=== PATIENT | male | born 1950 ===

== ENCOUNTER 2018-07-24 09:23 | Inpatient (IN) | payer OTHER ==
[~2018-07-24] VITALS: Ht 165.1 cm; Wt 81.6 kg
--- NOTE | 2018-07-24 09:35 | NUR ---
PACIENTE AL MOMENTO ESTABLE, ALERTA Y ORIENTADO X3 REFIERE DOLOR EN FLANKO LT, CORRIE LLEGA CON UN REFERIDO MEDICO EL CUAL INDICA QUE PACIENTE TIENE DX DE COLELITIASIS. SE CONTINUA MONITOREANDO POR CAMBIOS. AL MOMENTO PACIENTE ESTABLE DENTRO DE FERNANDEZ CONDICION.
--- NOTE | 2018-07-24 15:47 | NUR ---
PT ALERTA Y ORINETADO X3 ESFERAS REEVALUADO POR DR KUMAR. SE LE RUBY MUESTRAS DE ADAM CON TECNICAS ASEPTICAS. PT TOLERA TX. PT MANEJADO POR MS SZYMANSKI.
[2018-07-26] MEDS ORDERED: AMOX1TAB5 PO (11:23)
[2018-07-26] MEDS ORDERED: ULTRACET PO (11:27)
== END 2018-07-26 14:22 | disposition home or self-care (01) | DRG 419 ==
LOC: ER 09:23 → MEDI 18:36 → SEC-K 18:36 → MEDI 22:42
PROVIDERS: ADMIT Surgery
PROC: 0DNW4ZZ Release Peritoneum, Percutaneous Endoscopic Approach (ICD-10-PCS; 2018-07-25)
PROC: 0FT44ZZ Resection of Gallbladder, Percutaneous Endoscopic Approach (ICD-10-PCS; principal; 2018-07-25 11:00)
DX: K80.10 Calculus of gallbladder with chronic cholecystitis without obstruction (principal); K66.0 Peritoneal adhesions (postprocedural) (postinfection)